=== PATIENT | female | born 1990 | race Caucasian/White ===

== ENCOUNTER 2025-08-03 15:26 | Outpatient (REF) | payer OTHER, SELFPAY ==
--- OUTSIDE RECORDS SUMMARY | 2025-04-12 10:15 | XMS_ITS ---
Author Organization [facility] Address [address] [address] Care Team Providers Care Program Support Assistant Name Role Phone Toya Campbell Primary Care Provider Unavail able MELVI SELF Unavailable [phone] REASON FOR VISIT Referral for ingrown toenail Medications Medication SIG (Take, Route, Frequency, Duration) Notes Start Date End Date Status Cholecalciferol 25 MCG (1000 UT) 1 tablet Orally Once a day Active Levothyroxine Sodium 50 MCG 1 tablet in the morning on an empty stomach Orally Once a day Active Multivitamin - 1 tablet Orally Once a day Active Encounters Encounter Location Date Provider Diagnosis [facility] [address] [address] 04/12/2025 MELVI SELF Plan Of Treatment No Information Progress Notes * Diana MOSQUEDADOB:1990 (34 yo F)Acc No.[id number]:04/12/2025 Consult note Patient: Diana DOE Provider: Vivienne Self DPM :1990 A ge:34 Y S ex:Female Date:04/12/2025 Phone: Address:[address] [place] [id number] Pcp:Toya Campbell Subjective: * Chief Complaints: * 1 . Referral for ingrown toenail. * Medical History: A nxiety, Disease of thyroid gland. * Surgical History: B reast surgery , section , section, low transverse , Cosmetic surgery , Hernia repair . * Family History: F ather: prostate cancer, abdominal aortic aneurysm, alcohol abuse,. M other: hypertension, hyperlipidemia, thyroid disease, depression, alcohol abuse, immunodeficiency, idiopathic thrombocytopenia. P aternal Grand Father: Heart attack, coronary artery disease, hypertension, hearing loss. P aternal Grand Mother: arthritis, basal cell carcinoma, dementia. M aternal Grand Father: heart attack, hypertension, coronary artery disease. M aternal Grand Mother: leukemia. P aternal uncle: COPD. S iblings: sister: heart murmur. * Social History: t obacco: never alcohol: 8 drinks per week. * Medications: T aking Multivitamin - Tablet 1 tablet Orally Once a day , Taking Levothyroxine Sodium 50 MCG Tablet 1 tablet in the morning on an empty stomach Orally Once a day , Taking Cholecalciferol 25 MCG (1000 UT) Tablet 1 tablet Orally Once a day Objective: * Vitals: Therapeutic Interventions: Assessment: Plan: * Treatment: * Billing Information: * Visit Code: * Procedure Codes: * Electronic signature of ZACKARY SELF D.P.M on 08/03/2025 at 08:37 PM EST Sign off status: Pending * Provider: Vivienne Self DPM Date: 0 04/12/2025 Generated for Krystina olivarez/Liborio/Ivania on: 10/03/2024 08:37 PM EST
[2025-08-03 15:41] LABS: MANUAL DIFF FLAG NO
[2025-08-03 16:03] LABS: Hematocrit 39.2 % (37.0-47.0); Hemoglobin 13.0 g/dl (12.0-16.0); Imm Gran Abs Auto 0.03 X10*3/uL (0.00-0.03); Imm Gran Pct Auto 0.4 % (0.0-0.4); Lymphocytes Absolute Auto 2.5 X10*3/uL (1.2-4.9); Mean Corpuscular HGB Conc 33.2 g/dl (31.0-35.0); Mean Corpuscular Hemoglobin 30.4 pg (27.0-33.0); Mean Corpuscular Volume 91.8 fL (80.0-98.0); NRBC Abs Auto 0.000 X10*3/uL (0.0-0.012); NRBC Pct Auto 0.0 /100WBC (0.0-0.2); Platelet Count 315 X10*3/uL (160-400); Red Blood Count 4.27 X10*6/uL (4.20-5.50); White Blood Count 7.9 X10*3/uL (4.8-10.8)
[2025-08-03 16:32] LABS: Alanine Aminotransferase 16 U/L (0-31); Albumin Level 5.1 g/dL (3.5-5.0); Alkaline Phosphatase 40 U/L (39-117); Anion Gap 12 (12-20); Aspartate Amino Transferase 20 U/L (5-31); Blood Urea Nitrogen 18 mg/dL (9-16); Calcium 9.6 mg/dL (8.4-10.2); Carbon Dioxide 28 mmol/L (22-29); Chloride 104 mmol/L (96-108); Estimated Glomerular Filt Rate > 60; Potassium 4.0 mmol/L (3.3-5.1); Sodium 140 mmol/L (135-145); Total Protein 7.8 g/dL (6.5-8.0)
[2025-08-03 16:47] LABS: Thyroid Stimulating Hormone 0.71 uIU/mL (0.32-4.0)
--- OUTSIDE RECORDS SUMMARY | 2025-08-03 20:37 | XMS_ITS | Patient Health Record ---
Author Organization [facility] Address [address] [address] Care Team Providers Care Senior Computer Specialist Name Role Phone Toya Campbell Primary Care Provider Unavail able MELVI GARCIA Unavailable [phone] Reason For Referral No Information Medications Medication SIG (Take, Route, Frequency, Duration) Notes Start Date End Date Status Cholecalciferol 25 MCG (1000 UT) 1 tablet Orally Once a day Active Levothyroxine Sodium 50 MCG 1 tablet in the morning on an empty stomach Orally Once a day Active Multivitamin - 1 tablet Orally Once a day Active Plan Of Treatment No Information Insurance Providers Payer Name Payer Address Payer Phone Subscriber Number Group Number Insured Name Patient Relationship to Insured Coverage Start Date Coverage End Date [employer] [address] [address] [place] [address] [phone] [id number] Diana Mosqueda Self - patient is the insured Medical (General) History Medical History History ICD Code Anxiety Disease of thyroid gland Surgical History Surgery Date(Month/Year) Breast surgery section section, low transverse Cosmetic surgery Hernia repair
--- OUTSIDE RECORDS SUMMARY | 2025-08-03 20:37 | XMS_ITS | Clinical Summary ---
Author Organization [facility] Address [address] [place] [id number] Care Team Providers Care Manager Php Name Role Phone Toya Campbell MD Primary Care Provider Unav ailable Medications Medication Sig Dispensed Refills Start Date End Date Status MV-Min-Fe Fum-FA-DHA ( 1 PO) Take by mouth daily. 0 Active ergocalciferol (VITAMIN D2) capsule 71637 units TAKE 1 CAPSULE BY MOUTH ONCE A WEEK FOR 4 DOSES. 4 capsule 0 03/21/2022 Active levothyroxine (SYNTHROID) tablet 50 mcg TAKE 1 TABLET BY MOUTH EVERY DAY 90 tablet 1 05/27/2022 Active Additional Information Patient taking differently: 50 mcg, 50 mcg [id number] mcg Thursday AND Thursday ONLY, Reason: Other, Reported on 12/05/2022 METFORMIN HCL PO Take by mouth. 0 Acti ve clomiPHENE Citrate (CLOMID PO) Take by mouth. 0 Active Cholecalciferol (VITAMIN D3 ADULT GUMMIES PO) Take by mouth. 2 Gummies daily 0 Active Immunizations Name Administration Dates Next Due Covid-19 (Moderna 12+) 100mcg/0.5mL dosage 07/24,10/15/2020,09/17/2020 Influenza Quad (Fluarix/Fluz one/FluLaval) 0.5mL (SD-IIV4) 07/22/2021 Family History Medical History Relation Name Comments Cancer Father Hyperlipidemia Father Anxiety disorder Mother Hypertension Mother Relation Name Status Comments Father Alive Mother Alive Sister Alive Social History Tobacco Use Types Packs/Day Years Used Date Smoking Tobacco: Never Smokeless Tobacco: Never Alcohol Use Standard Drinks/Week Comments Yes 0 (1 standard drink = 0.6 oz pur e alcohol) social Sex and Gender Information Value Date Recorded Sex Assigned at Not on file Gender Identity Not on file Sexual Orientation Not on file Job Start Date Occupation Industry Not on file Not on file Not on file Last Filed Vital Signs Vital Sign Reading Time Taken Comments Blood Pressure 103/63 12/05/2022 12:54 PM EDT Pulse 58 12/05/2022 12:54 PM EDT Temperature 36.8 C (98.3 F) 12/05/2022 12:54 PM EDT Respiratory Rate - - Oxygen Saturation 100% 12/05/2022 12:54 PM EDT Inhaled Oxygen Concentration - - Weight 54.4 kg (120 lb) 12/05/2022 12:54 PM EDT Height 152.4 cm (5') 12/05/2022 12:54 PM EDT Body Mass Index 23.44 12/05/2022 12:54 PM EDT Plan of Treatment Health Maintenance Due Date Last Done Comments Hepatitis B Vaccines (1 of 3 - 3-dose series) 1988 Hepatitis C Screening 1990 Cervical Cancer Screening (Pap Smear) 2009 DTap / Tdap / Td (7 - Td or Tdap) 08/05/2020 08/05/2010, 06/29/2000, 05/06/1994, Additional history exists Depression Screening 12/06/2023 12/05/2022, 11/30/19 Preventative Health Evaluation 12/06/2023 12/05/2022, 12/05/2022, 11/29/2021 COVID-19 Vaccine ( season) 2025 07/24/2021, 10/15/2020, 09/17/2020 Influenza Vaccine (#1) 2025 07/22/2021 Pneumococcal Vaccine Aged Out No long er eligible based on patient's age to complete this topic RSV Ped < 20 months Aged Out No longe r eligible based on patient's age to complete this topic Care Teams Manager Php Relationship Specialty Start Date End Date Toya Campbell MD PCP - General Internal Medicine 11/29/21
--- OUTSIDE RECORDS SUMMARY | 2025-08-03 20:37 | XMS_ITS | Encounter Summary ---
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[employer] Name Role Phone Toya Campbell MD Primary Care Provider Reason for Visit * Reason Onset Date Comments Medication Problem 06/19/2025 Encounter Details Date Type Department Care Team ([facility] st Contact Info) Description 06/19/2025 Telephone Endocrinology - [place] [address] [place] [phone] Nydia Verduzco PA [address] [place] [address] Social History Tobacco Use Types Packs/Day Years Used Date Smoking Tobacco: Never Smokeless Tobacco: Never Alcohol Use Standard Drinks/Week Comments Yes 8 (1 standard drink = 0.6 oz pur e alcohol) either or Housing Instability Answer Date Recorde d Are you worried that in the next 2 months you may not have stable housing? No 12/22/2024 Food Access & Nutrition Answer Date Rec orded Do you have access to a vari ety of food including fruits and vegetables? Yes 12/22/2024 Access to Healthcare Answer Date Record ed Within the last 3 months, ho w many times did you visit the emergency department for your medical care? 0 12/22/2024 Health Literacy Answer Date Recorded How often do you need to hav e someone help you when you read instructions, pamphlets, or other written material from your doctor or pharmacy? Never 12/22/2024 Caregiver: How often do you need to have someone help you when you read instructions, pamphlets, or other written material from your doctor or pharmacy? Not on file 12/22/2024 Financial Risk Answer Date Recorded How hard is it for you to pa y for the very basics like food, housing, medical care, and air conditioning / heating? Not very hard 12/22/2024 Transportation Answer Date Recorded Has the lack of transportati on kept you from meetings, work, or from getting things needed for daily living? No Has the lack of transportati on kept you from medical appointments or from getting medications? No 12/22/2024 Social Isolation Answer Date Recorded How often do you feel lonely or isolated from th ose around you? Never 12/22/2024 Food Risk Answer Date Recorded Within the past 12 months we worried whether our food would run out before we got money to buy more. Never true 12/22/2024 Within the past 12 months th e food we bought just didn't last and we didn't have money to get more. Never true 12/22/2024 Dependent Care Answer Date Recorded Do you need help finding or paying for care for your loved ones. For example, summer child caregiver or elderly care for an older adult? No 12/22/2024 Education Answer Date Recorded Do you think completing more education or training, like finishing a GED, going to college, or learning a trade, would be helpful for you? N/A 12/22/2024 Employment and Income Answer Date Recor ded During the last four weeks, have you been actively looking for work? No 12/22/2024 Living Situation Answer Date Recorded What is your living situation? Unrecognized valu e 12/22/2024 Comments Unknown Sex and Gender Information Value Date Recorded Sex Assigned at Not on file Legal Sex Female 10:44 PM EST Gender Identity Not on file Sexual Orientation Not on file documented as of this encounter Progress Notes * Kim Morales MA - 06/20/2025 1:30 PM EDT Pls sign corrected rx * Radha Pierson - 06/19/2025 3:14 PM EDT Endocrine Call Primary endocrine provider: Nydia Verduzco PA-C Is the endocrine provider in the office toady?: yes Who is calling? The patient. If not the patient or parent/guardian please check for authorization to share/verbal release. Why is the person calling? Other question/concern: Medication Problem: Pt says directions on medication is wrong . She says the directions should say Mon- fri 50 mcg and sat 75 mcg Thursday 100 mcg. Ptalso would like to change pharmacy to [facility] for this request . Please forward to endocrine pool (p [phone]). documented in this encounter Plan of Treatment Upcoming Encounters Date Type Department Care Team (Late st Contact Info) Description 11/07/2025 3:30 PM EST Office Visit Endocrinology - [place] [id number] [place] [address] Nydia Verduzco PA [address] [place] [address] documented as of this encounter Visit Diagnoses Not on filedocumented in this encounter Additional Health Concerns Assessment Noted Time PHQ-9 Depression Total Score: 0 12/23/19 25 8:04 AM EDT documented as of this encounter Care Teams Farmworker [employer] Relationship Specialty Start Date End Date Toya Campbell MD [address] [place] [address] [place] [id number] PCP - General Internal Medicine 11/29/21 documented as of this encounter
--- OUTSIDE RECORDS SUMMARY | 2025-08-03 20:37 | XMS_ITS ---
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 Take with at least 8 ounces (large glass) of water, do not lie down for 30 minutes after. Administer 2 hours before or after multivitamins, antacids, or other products containing polyvalent cations (i.e., calcium, iron, magnesium, quin 02/01/2025 02/02/2025 active levothyroxine (SYNTHROID, LEVOTHROID) 50 mcg tablet TAKE 1 TABLET BY MOUTH THURSDAY TO THURSDAY AND TAKE 1 AND 1/2 TABLETS BY MOUTH ON THURSDAY AND 2 TABLETS BY MOUTH ON Sundays11/04/2024 active cholecalciferol (VITAMIN D-3) 25 mcg (1,000 unit) tablet Take 1 tablet (1,000 Units total) by mouth 1 (one) time each day. active multivitamin with minerals (MULTIPLE VITAMIN-MINERALS ORAL) Take 1 Tab by mouth daily. active Problems Problem Status Onset Date Problem Type Date of Resoluti on Source Panic disorder active 2016-09-22 ProblemAct [facility] Immunizations Vaccine Date Source Lot Number Status Influenza Quadrivalent, 0.5m l, preservative free (Fluarix; FluLaval; Fluzone) ages 6mo and older (Afluria) 3yo and older 07/15/2023 [facility] [id number] completed Influenza Quadrivalent, 0.5m l, preservative free (Fluarix; FluLaval; Fluzone) ages 6mo and older (Afluria) 3yo and older 07/22/2021 [facility] completed Moderna SARS-CoV-2 COVID-19, mRNA, LNP-S, preservative free 10/15/2020 [facility] [id number] completed Moderna SARS-CoV-2 COVID-19, mRNA, LNP-S, preservative free 09/17/2020 [facility] [id number] completed Influenza Quadravalent, MDCK , 0.5ml, preservative free (Flucelvax) 6mo and older 07/24/2016 [id number] completed HPV, Quadrivalent 01/20/2013 [id number] complet ed Tdap Tetanus diptheria acell ular pertussis (Boostrix; Adacel) 7yo and older 08/05/2010 [facility] completed HPV, Quadrivalent 08/04/2007 [facility] complet ed HPV, Quadrivalent 04/13/2007 [facility] complet ed Meningococcal MCV4P 04/13/2007 [facility] compl eted PPD Test 08/18/2006 [facility] completed Hepatitis B (Gjrbjsk-L-Fdlhg , Recombivax HB-Adult) 19yo and older 10/21/2000 [facility] complet ed Hepatitis B (Vvbabio-Y-Qtpcv , Recombivax HB-Adult) 19yo and older 06/29/2000 [facility] complet ed Td Tetanus diptheria (Tdvax) 7yo and older 06/29/2000 [facility] completed Hepatitis B (Ejbeues-Z-Pdanf , Recombivax HB-Adult) 19yo and older 05/14/2000 [facility] complet ed MMR, measles mumps and rubel la Live (Priorix; M-M-R II) 12mo and older 03/20/1998 [facility] completed DTP 05/06/1994 [facility] completed OPV 05/06/1994 [facility] completed DTP 12/29/1991 [facility] completed OPV 12/28/1990 [facility] completed PWlD-DJN-CSW (Pentacel) 2mo to less than 5yo 07/06/1990 [facility] completed Hib (HbOC) 07/06/1990 [facility] completed MMR, measles mumps and rubel la Live (Priorix; M-M-R II) 12mo and older 03/29/1990 [facility] completed OPV 09/01/1989 [facility] completed DTP 07/09/1989 [facility] completed DTP 06/03/1989 [facility] completed OPV 06/03/1989 [facility] completed DTP 04/03/1989 [facility] completed OPV 04/03/1989 [facility] completed Encounters Encounter Type Encounter Reason Primary Diagnosis Location Date Ambulatory Follow-up Insect bite (nonvenomous) of abdominal wall, initial encounter [facility] 02/01/2025 Ambulatory Annual Exam Encounter for ge neral adult medical examination without abnormal findings [facility] 12/22/2024 Care Team Organization Name Specialty Phone Email Start Date End Da te [facility] MARICRUZ Primary Care 12/26/2024 [facility] Toya Campbell Primary Care 12/22/2024 [facility] Nydia Verduzco Primary Care 05/21/2023 05/02/20 [facility] Toya Campbell MD Primary Care 07/22/2022 05/02/2024
--- OUTSIDE RECORDS SUMMARY | 2025-08-03 20:37 | XMS_ITS | Clinical Summary ---
Author Organization [facility] [address] [place] [address] Address [address], [place] Phone Care Team Providers Care Cray Fishing Hand Name Role Phone Toya Campbell MD Primary Care Provider [phone] Allergies No known active allergies Medications cholecalciferol (VITAMIN D-3) 25 mcg (1,000 unit) tablet Take 1 tablet (1,000 Units total) by mouth 1 (one) time each day. Active multivitamin with minerals (MULTIPLE VITAMIN-MINERAL S ORAL) Take 1 Tab by mouth daily. Active levothyroxine (SYNTHROID, LEVOTHROID) 50 mcg tabletIndicatio ns:Hypothyroidi sm, unspecified type TAKE 1 TABLET BY MOUTH THURSDAY TO THURSDAY AND TAKE 1 AND 1/2 TABLETS BY MOUTH ON THURSDAY AND 2 TABLETS BY MOUTH ON SUNDAYS 111 tablet 3 08/01/20 25 Active levothyroxine (SYNTHROID, LEVOTHROID) 50 mcg tablet TAKE 1 TABLET ON Thursday AND 1&1/2 TABLETS ON THURSDAY THEN 2 TABLETS ON THURSDAY 90 tablet 3 06/19/20 25 025 Discontinued Active Problems Problem Noted Date Diagnosed Date Encounter for routine adult health examination without abnormal findings 12/22/2024 Panic disorder 09/22/2016 Encounters Date Type Department Care Team Description 06/19/2025 Telephone [facility] [address], [place] [phone] Nydia Verduzco PA 06/16/2025 Telephone [facility] [address] [place] [address] Nydia Verduzco PA from Last 3 Months Immunizations Immunization Administration Dates Next Due DTP 05/06/1994, 2,07/09/1989,06/03,04/03/1989 IViX-WPE-MPP (Pentacel) 2mo to less than 5yo 07/06/1990 HPV, Quadrivalent 01/20/2013,08/04/2007,04/13/20 07 Hepatitis B (Juxdpiu-C-Uczdy , Recombivax HB-Adult) 19yo and older 10/21/2000,06/29/2000,05/14/2000 Hib (HbOC) 07/06/1990 Influenza Quadravalent, MDCK , 0.5ml, preservative free (Flucelvax) 6mo and older 07/24/2016 Influenza Quadrivalent, 0.5m l, preservative free (Fluarix; FluLaval; Fluzone) ages 6mo and older (Afluria) 3yo and older 07/15/2023,07/22/2021 MMR, measles mumps and rubel la Live (Priorix; M-M-R II) 12mo and older 03/20/1998,03/29/1990 Meningococcal MCV4P 04/13/2007 Moderna SARS-CoV-2 COVID-19, mRNA, LNP-S, preservative free 10/15/2020,09/17/2020 OPV 05/06/1994, 1,09/01/1989,06/03,04/03/1989 PPD Test 08/18/2006 Td Tetanus diptheria (Tdvax) 7yo and older 06/29/2000 Tdap Tetanus diptheria acell ular pertussis (Boostrix; Adacel) 7yo and older 08/05/2010 Surgical History Surgery Date Site/Laterality Comments SECTION 2019 PROCEDURE: HISTORICAL BREAST SURGERY 09/2024 COSMETIC SURGERY 09/2024 SECTION, LOW TRANSVERSE 01/2020 HERNIA REPAIR 09/2024 Medical History Medical History Date Comments Anxiety Disease of thyroid gland Family History Medical History Relation Name Comments Abdominal Aortic Anuerysm (AAA) Father Sung Deleon Alcohol abuse Father Sung Deleon Alcohol/Drug Father Sung Deleon Cancer Father Sung Deleon prostate Prostate cancer Father Sung Deleon COPD Father's Brother Anthony Deleon Coronary artery disease Maternal Grandfather Heart attack Maternal Grandfather Hypertension Maternal Grandfather Cancer Maternal Grandmother Anisa willett leukem ia Leukemia Maternal Grandmother Anisa willett Alcohol abuse Mother Malissa deleon Alcohol/Drug Mother Malissa deleon Depression Mother Malissa deleon Hyperlipidemia Mother Malissa deleon Hypertension Mother Malissa deleon Immunodeficiency Mother Malissa deleon idiopathic thrombocytopenia Thyroid disease Mother Malissa deleon Coronary artery disease Paternal Grandfather Luh L emoine Hearing loss Paternal Grandfather Luh Brennon Heart attack Paternal Grandfather Luh Brennon pass ed from the event in mid 60s Heart disease Paternal Grandfather Luh Brennon MS Hypertension Paternal Grandfather Luh Brennon Arthritis Paternal Grandmother Rosanne Deleon Basal cell carcinoma Paternal Grandmother Rosanne Deleon Dementia Paternal Grandmother Rosanne Deleon Other: Heart Murmur Sister 1 Breast cancer Neg Hx Colon cancer Neg Hx Diabetes Neg Hx Ovarian cancer Neg Hx Pancreatic cancer Neg Hx Prostate cancer Neg Hx Stroke Neg Hx Uterine cancer Neg Hx Relation Name Status Comments Father Sung Deleon Alive Alcoholism Father's Brother Anthony Deleon Maternal Grandfather Alive HTN, CA D Maternal Grandmother Anisa willett Leukem ia Mother Malissa deleon Alive thyroid dx, Al coholism, Depression, htn, hyperchol, colonic polyp Paternal Grandfather Luh Willett HTN, CAD Paternal Grandmother Rosanne Deleon Alive Arthrit is Sister 1 Sister 2 Alive heart murmur Social History Tobacco Use Types Packs/Day Years Used Date Smoking Tobacco: Never Smokeless Tobacco: Never Tobacco Cessation:Counseling Given: Not Answered Alcohol Use Standard Drinks/Week Comments Yes 8 [...] Record ed Within the last 3 months, margie duarte many times did you visit the emergency [...] care for your loved ones. For example, child daycare worker or elderly care for an older adult? [...] on file Sexual Orientation Not on file Obstetrics History Last Filed Vital Signs Vital Sign Reading Time Taken Comments Blood Pressure 99/61 02/01/2025 9:24 AM EDT Pulse 53 02/01/2025 9:24 AM EDT Temperature 36.9 C (98.4 F) 02/01/2025 9:24 AM EDT Respiratory Rate - - Oxygen Saturation 98% 02/01/2025 9:24 AM EDT Inhaled Oxygen Concentration - - Weight 54.4 kg (120 lb) 02/01/2025 9:24 AM EDT Height 152.4 cm (5') 02/01/2025 9:24 AM EDT Body Mass Index 23.44 02/01/2025 9:24 AM EDT Plan of Treatment Upcoming Encounters Date Type Department Care Team (Late st Contact Info) Description 11/07/2025 3:30 PM EST Office Visit Endocrinology - [place] [address] [place] [address] Nydia Verduzco PA [address] [place] [address] Health Maintenance Due Date Last Done Comments HIV Screening 10/14/2019 Hepatitis C Screening 10/14/2019 DTaP,Tdap,and Td Vaccines (8 - Td or Tdap) 08/05/2020 08/05/2010, 06/29/2000, 05/06/1994, Additional history exists Cervical Cancer Screening: Pap Smear 10/02/2020 10/02/2017, 10/02/2017 COVID-19 Vaccine ( season) 2025 07/24/2021, 10/15/2020, 09/17/2020 Influenza Vaccine (#1) 2025 , 07/22/2021, 07/24/2016 Social Influencers of Health Screening 12/22/2025 12/22/2024 Cholesterol Screening (Lipid Panel) 12/27/2029 12/27/2024, 11/23/2020 RSV Immunization Adult Patients (1 - 1-dose 75+ series) 12/26/2063 HIB Vaccines Completed 07/06/1990, 07/06/1990 IPV Vaccines Completed 05/06/1994, 12/13, 07/06/1990, Additional history exists MMR Vaccines Completed 03/20/1998, 03/29/1990 Hepatitis B Vaccines Completed 10/21/2000, 06/29/2000, 05/14/2000 Meningococcal ACWY Vaccine Completed 04/13/2007 HPV Vaccines Completed 01/20/2013, 07/16, 04/13/2007 Depression Screening Completed 12/22/2024 Hepatitis A Vaccines Aged Out No long er eligible based on patient's age to complete this topic Meningococcal B Vaccine Aged Out No l onger eligible based on patient's age to complete this topic Pneumococcal Vaccine: Pediatrics (0 to 5 Years) and At-Risk Patients (6 to 49 Years) Aged Out No longer eligible based on patient's age to complete this topic RSV Immunization Patients Under 20 months Aged Out No longer eligible based on patient's age to complete this topic Varicella Vaccines Aged Out No longer eligible based on patient's age to complete this topic Procedures Procedure Name Priority Date/Time Associated Diagnosis Comments BORRELIA BURGDORFERI ANTIBODY Routine 05/08/2025 2:01 PM EDT Nonvenomous insect bite of abdominal wall without infection Nonvenomous insect bite of groin without infection BABESIA MICROTI ANTIBODIES, IGG AND IGM Routine 05/08/2025 2:01 PM EDT Nonvenomous insect bite of abdominal wall without infection Nonvenomous insect bite of groin without infection ANAPLASMA PHAGOCYTOPHILUM ANTIBODIES, IGG AND IGM Routine 05/08/2025 2:01 PM EDT Nonvenomous insect bite of abdominal wall without infection Nonvenomous insect bite of groin without infection LIPID PANEL WITH REFLEX TO DIRECT LDL Routine 12/27/2024 8:02 AM EDT Routine general medical examination at a health care facility HM HPV Routine 10/02/2017 from Last 3 Months or Most Recently Relevant to Health Maintenance Results * Babesia microti antibodies, IGG and IGM (05/08/2025 2:01 PM EDT) Babesia microti IgG Antibodies <1:64 05/16/2025 10:40 PM EDT [facility] Babesia microti IgM Antibodies <1:20 05/16/2025 10:40 PM EDT [facility] Babesia microti Interpretation SEE NOTE 05/16/2025 10:40 PM EDT [facility] Comment: ANTIBODY NOT DETECTED REFERENCE RANGES: IgG <1:64 IgM <1:20 Elevated antibody levels to B. microti indicate exposure to the organism. Human babesiosis infection is transmitted by the bite of an infected Ixodes tick or less frequently from transfusion with blood from an infected donor. Definitive diagnosis is made by identifying intraerythrocytic organisms in peripheral blood. In patients with low parasitemia, antibody detection by IFA is recommended. IgG levels greater than or equal to 1:1024 can be detected in acute phase patients with parasites in blood smears. The IFA assay can be used as a seroepidemiologic tool to study the frequency and distribution of B. microti in endemic areas especially in persons with mixed infections also involving Borrelia burgdorferi. This test was developed and its analytical performance characteristics have been determined by [facility]. It has not been cleared or approved by FDA. This assay has been validated pursuant to the CLIA regulations and is used for clinical purposes. Test Performed at: [facility] [place] [id number] [place] [address] Giuseppe Justice MD, PhD Blood Venous blood specimen / Unknown Venipuncture / Unknown 05/08/2025 2:01 PM EDT 05/08/2025 3:23 PM EDT us Toya Campbell MD LAB BLOOD ORDERABLES Final Result [facility] [address] [place] [address] * Anaplasma phagocytophilum antibodies, IGG and IGM (05/08/2025 2:01 PM EDT) Pathologist [facility] [place] Anaplasma phagocytophilum IgG Ab <1:64 <1:64 05/12/2025 9:32 PM EDT [facility] Anaplasma phagocytophilum IgM Ab <1:20 <1:20 05/12/2025 9:32 PM EDT [facility] Anaplasma phagocytophilum Interpretation SEE BELOW 05/12/2025 9:32 PM EDT [facility] Comment:Antibody Not Detecte d Comment SEE BELOW 05/12/2025 9:32 PM EDT [facility] Comment: Anaplasma phagocytophilum is the tick-borne agent causing Human Granulocytic Ehrlichiosis (HGE). HGE is distinct and separate from Human Monocytic Ehrlichiosis (HME), caused by Ehrlichia chaffeensis. Serologic crossreactivity between A. phagocyto- philum and E. chaffeensis is minimal (5-15%). This test was developed and its analytical performance characteristics have been determined by [facility] [place], [place]. It has not been cleared or approved by the U.S. Food and Drug Administration. This assay has been validated pursuant to the CLIA regulations and is used for clinical purposes. Test Performed by [facility], [facility], [address] [place] [address] Brad Read M.D., Ph.D., Director of Laboratories , CLIA [id number] Blood Venous blood specimen / Unknown Venipuncture / Unknown 05/08/2025 2:01 PM EDT 05/08/2025 3:23 PM EDT Toya Campbell MD LAB BLOOD ORDERABLES Final Result [facility] [address] [place] [address] * Borrelia burgdorferi antibody (05/08/2025 2:01 PM EDT) [facility] Lyme Ab Negative Negative LAB CHEMISTRY METHOD 05/09/2025 11:31 AM EDT [facility] Comment: No laboratory evidence of infection with B. burgdorferi (Lyme disease). Negative results may occur in patients recently infected (<=14 days) with B. burgdorferi. If recent infection is suspected, repeat testing on a new sample collected in 7- 14 days is recommended. Blood Venous blood specimen / Unknown Venipuncture / Unknown 05/08/2025 2:01 PM EDT 05/08/2025 3:23 PM EDT Toya Campbell MD LAB BLOOD ORDERABLES Final Result [facility] [address] [place] [address], [place] [phone] * (ABNORMAL) Lipid panel with reflex to direct LDL (12/27/2024 8:02 AM EDT) [facility] Cholesterol 187 0 - 200 mg/dL LAB CHEMISTRY METHOD 12/27/2024 10:14 AM EDT [facility] Triglycerides 61 0 - 150 mg/dL LAB CHEMISTRY METHOD 12/27/2024 10:14 AM EDT [facility] HDL 71 >=40 mg/dL LAB CHEMISTRY METHOD 12/27/2024 10:14 AM [facility] LDL Calculated 104(H) 0 - 100 mg/dL LAB CHEMISTRY METHOD 12/27/2024 10:14 AM [facility] VLDL Cholesterol Juanito 12.2 mg/dL LAB CHEMISTRY METHOD [facility] Non HDL Chol. (LDL+VLDL) 116 <145 mg/dL LAB CHEMISTRY METHOD 12/27/2024 10:14 AM [facility] Chol/HDL Ratio 2.6 0.0 - 4.4 LAB CHEMISTRY METHOD 12/27/2024 10:14 AM [facility] Blood Venous blood specimen / Unknown Venipuncture / Unknown 12/27/2024 8:02 AM EDT 12/27/2024 9:07 AM EDT us Toya Campbell MD LAB BLOOD ORDERABLES Final Result [facility] [address] [place] [address], [place] [phone] * Cervical Cancer Screening: HPV (10/02/2017) [facility] Cervical Cancer Screening: HPV no interpretation , abstracted us Historical Provider HEALTH MAINTENANCE Final Result from Last 3 Months or Most Recently Relevant to Health Maintenance Insurance [facility] [address] [place] [address] Care Teams Cray Fishing Hand Relationship Specialty Start Date End Date Toya Campbell MD [address] [facility] [address] [place] [address] PCP - General Internal Medicine 11/29/21
--- OUTSIDE RECORDS SUMMARY | 2025-08-03 20:37 | XMS_ITS | Clinical Summary ---
Author Organization [facility] Address [address] [place], [place] [id number] Phone Care Team Providers Care Cathode Maker Name Role Phone Margaret Sahu Syeda [facility] Primary Care Provider [phone] Allergies No known active allergies Medications levothyroxine (SYNTHROID, LEVOTHROID) 50 MCG tablet Take 1 tablet by mouth daily. 2 Active levothyroxine (SYNTHROID, LEVOTHROID) 50 MCG tablet 75 mcg. 100mcg on Thursday 3 Active CLOMID 50 mg tablet TAKE 2 TABLET EVERY MORNING, DAYS 3-7 OF THE MENSTRUAL CYCLE 3 Active vitamins with iron fum-FA 27 mg iron- 0.8 mg Tab Active ergocalciferol (DRISDOL) 50,000 unit capsule TAKE 1 CAPSULE BY MOUTH ONCE A WEEK FOR 4 DOSES. 2 Active clomiPHENE citrate (CLOMID) 50 mg tabletIndicatio ns:Female infertility, secondary Take two tablets daily for days number 5-9 10 tablet 3 3 Active Additional Information Patient not taking.Reported on 06/07/2023 Active Problems Problem Noted Date Diagnosed Date Infertility management 06/07/2023 Immunizations Immunization Administration Dates Next Due DTP 05/06/1994, 2,07/09/1989,06/03,04/03/1989 HPV,quadrivalent 01/20/2013,08/04/2007, 7 Hepatitis B Adult 10/21/2000,06/29/2000,05/14/20 00 Hib,HbOC 07/06/1990 Influenza Quadrivalent MDCK Preservative Free IM 07/24/2016 Influenza Quadrivalent Prese rvative Free IM 07/22/2021 MMR 03/20/1998,03/29/1990 Meningococcal MCV4P 04/13/2007 Polio - OPV 05/06/1994, 1,09/01/1989,06/03,04/03/1989 Td (adult),2 Lf Tetanus Toxo id, PF, Adsorbed 06/29/2000 Tdap 08/05/2010 Family History Medical History Relation Comments Hyperlipidemia Father Prostate cancer Father Hypertension Mother Hypothyroidism Mother Relation Status Comments Father Alive Mother Alive Social History Tobacco Use Types Packs/Day Years Used Date Smoking Tobacco: Never Smokeless Tobacco: Never Tobacco Cessation:Counseling Given: Not Answered Alcohol Use Standard Drinks/Week Comments Yes 0 (1 standard drink = 0.6 oz pur e alcohol) Education Answer Date Recorded Are you interested in more education? Not on araceli e 01/28/2023 Are you concerned about learning? Not on file 01/28/2023 No 01/28/2023 No 01/28/2023 Digital Access Answer Date Recorded No 02/10/2023 No 02/10/2023 Reliable internet access at home? Not on file 02/10/2023 Device with a working camera? Not on file Comments No Sex and Gender Information Value Date Recorded Sex Assigned at Not on file Legal Sex Female 9:08 AM EDT Gender Identity Not on file Sexual Orientation Not on file Last Filed Vital Signs Vital Sign Reading Time Taken Comments Blood Pressure 96/62 08/06/2023 8:40 AM EST Pulse - - Temperature - - Respiratory Rate - - Oxygen Saturation - - Inhaled Oxygen Concentration - - Weight 52.8 kg (116 lb 6.4 oz) 03/13/2023 4:02 P M EDT Height 152.4 cm (5') 03/13/2023 4:02 PM EDT Body Mass Index 22.73 03/13/2023 4:02 PM EDT Plan of Treatment Health Maintenance Due Date Last Done Comments DEPRESSION SCREENING 2000 HEPATITIS C SCREENING 2006 HIV ONE-TIME SCREENING (18-65 YEARS) 2006 PAP SMEAR 2009 Adult Td,Tdap Booster 08/05/2020 08/05/2010, 000 TSH LEVEL 01/24/2023 01/24/2022 INFLUENZA VACCINE (#1) 2025 07/22/2021, 2015 COVID-19 VACCINE (2024- season) 2025 07/24/2021, 10/15/2020, 09/17/2020 HIB VACCINES Completed 07/06/1990 IPV VACCINES Completed 05/06/1994, 12/13, 09/01/1989, Additional history exists MENINGOCOCCAL VACCINES (ACWY) Completed 04/13/2007 SMOKING STATUS SCREENING (Once After 26 Yrs) Completed 03/13/2023 HEPATITIS A VACCINES Aged Out No long er eligible based on patient's age to complete this topic MENINGOCOCCAL VACCINES (B) Aged Out N o longer eligible based on patient's age to complete this topic PNEUMOCOCCAL VACCINES (0-49 years) Aged Out No longer eligible based on patient's age to complete this topic Medical Devices Not on file Insurance [employer] O POS EPO [facility] E[facility] [place] [address] [place] [address] [facility] [employer] O POS EPO [facility] Care Teams Cathode Maker Relationship Specialty Start Date End Date Margaret Sahu CNM [address] [place] [id number] PCP - General Certified Nurse Accounting Clerks Supervisor 08/07/23 Additional Source Comments The information contained in this document represents components of the legal health record. It is not the complete legal health record.[facility]
== END 2025-08-03 15:27 | disposition home or self-care (01) ==
LOC: HO.LAB 15:26
PROVIDERS: PCP Internal Medicine; Visit Provider Internal Medicine
DX: Z00.00 Encounter for general adult medical examination without abnormal findings (principal); Z13.31 Encounter for screening for depression; E03.8 Other specified hypothyroidism; F40.243 Fear of flying; F40.248 Other situational type phobia
CPT/HCPCS: 36415; 80053; 84443; 85025